=== PATIENT | male | born 1990 | race African-American/Black ===

== ENCOUNTER 2019-10-28 01:18 | Emergency (ER) | payer BC, MEDICAID ==
[~2019-10-28] VITALS: Ht 175.3 cm; Wt 91.0 kg
[2019-10-28] MEDS ORDERED: ACETAMINOPHEN 500MG TABLET PO ONE (02:00)
[2019-10-28] MEDS ORDERED: IBUPROFEN 800MG TABLET PO ONE (02:00)
[2019-10-28 03:20] VITALS: BP 126/81
== END 2019-10-28 03:22 | disposition home or self-care (01) ==
LOC: ER 01:18
DX: J11.1 Influenza due to unidentified influenza virus with other respiratory manifestations (principal); R50.9 Fever, unspecified; R51 Headache; Z88.2 Allergy status to sulfonamides; Z88.8 Allergy status to other drugs, medicaments and biological substances
CPT/HCPCS: 87804; 99283

== ENCOUNTER 2020-03-23 12:41 | Emergency (ER) | payer MEDICAID ==
[~2020-03-23] VITALS: Ht 175.3 cm; Wt 98.0 kg
[2020-03-23] MEDS ORDERED: ACETAMINOPHEN WITH CODEINE 300/30MG TABLET PO STA (13:13)
[2020-03-23 13:23] LABS: CHLORIDE 107 mEq/L (98-107)
[2020-03-23 13:28] LABS: BASOPHILS % 0.7 % (0.0-2.0); EOSINOPHILS % 1.7 % (0.0-5.0); HEMATOCRIT. 42.8 % (42.0-52.0); HEMOGLOBIN. 14.3 g/dL (14.0-18.0); LYMPHOCYTES % 28.8 % (20.0-50.0); MEAN CORPUSCULAR HEMOGLOBIN 29.1 pg (28.0-32.0); MEAN CORPUSCULAR VOLUME 87.2 fL (80.0-94.0); MEAN PLATELET VOLUME 10.5 fl (7.4-10.4); MONOCYTES % 7.9 % (2.0-8.0); NEUTROPHILS % 60.9 % (40.0-76.0); PLATELET 211 x1000/uL (130-400); RED BLOOD CELL COUNT 4.91 mill/uL (4.7-6.1); RED CELL DISTRIBUTION WIDTH 14.5 % (11.6-14.6)
[2020-03-23 16:40] VITALS: BP 147/63
== END 2020-03-23 16:46 | disposition home or self-care (01) ==
LOC: ER 12:41
DX: R07.89 Other chest pain (principal); Z88.2 Allergy status to sulfonamides
CPT/HCPCS: 36415; 71045; 80053; 84484; 85025; 93005; 99285